=== PATIENT | male | born 1940 | race Caucasian/White ===

== ENCOUNTER → 2016-12-23 | Outpatient (CLI) | payer OTHER, MEDICARE ==
[~2016-12-23] MED LIST: ASPIRIN 81M81 MG/TA2 PO; BENICAR 20MG TA20 MG PO; FLOMAX 0.40.4 MG/CAP PO; GLUCOPHAGE500 MG/TAB PO; LEXAPRO 10MG10 MG PO; LIPITOR20 MG PO; MELATONIN3 MG PO; PROSCAR 5MG5 MG PO; PROTONIX 40MG T40 MG PO; UNKNOWN BP MED; ZOFRAN 4MG T4 MG/TAB PO; [UNRECOGNIZED DRUG - REMARK] PO
== END ==
LOC: COL.RAD 14:45
DX: R51 Headache (principal); C76.0 Malignant neoplasm of head, face and neck
CPT/HCPCS: A9585

== ENCOUNTER → 2017-02-26 | Outpatient (CLI) | payer OTHER | LOC: COL.RAD 11:09 | DX: M19.072 Primary osteoarthritis, left ankle and foot (principal) | CPT/HCPCS: J3301; Q9967 ==

== ENCOUNTER → 2017-03-03 | Outpatient (CLI) | payer OTHER | LOC: COL.RAD 13:22 | DX: M85.672 Other cyst of bone, left ankle and foot (principal) | CPT/HCPCS: J3301 ==

== ENCOUNTER 2017-08-05 10:59 | Day surgery (SDC) | payer OTHER ==
[~2017-08-05] VITALS: Ht 175.3 cm; Wt 61.8 kg
[2017-08-05] MEDS ORDERED: B COMPLEX #11 TAB PO (11:18)
[2017-08-05] MEDS ORDERED: CENTRUM SILVER1 CTB PO (11:19)
[2017-08-05] MEDS ORDERED: THE MEDICINE S200 M2 PO (11:20)
[2017-08-05] MEDS ORDERED: FLAXSEED OIL PO (11:20)
[2017-08-05] MEDS ORDERED: D3 PO (11:21)
[2017-08-05] MEDS ORDERED: NIACIN 64 MG-501 TA1 PO (11:22)
[2017-08-05] MEDS ORDERED: VITAMINC1000TA PO (11:22)
[2017-08-05] MEDS ORDERED: NATURAL E400 IU PO (11:23)
[2017-08-05] MEDS ORDERED: VITAMIN D 1001000 IU PO (11:23)
[2017-08-05] MEDS ORDERED: OSCAL 500 TAB500 MG PO (11:24)
[2017-08-05] MEDS ORDERED: B COMPLEX & B121 TAB PO (11:24)
[2017-08-05] MEDS ORDERED: MASON NATURAL1200 MG PO (11:25)
[2017-08-05 11:39] VITALS: BP 99/64; PULSE 74; TEMP 98.5
[2017-08-05 12:55] VITALS: BP 92/55; PULSE 58; TEMP 98.5
[2017-08-05 13:10] VITALS: BP 112/67; PULSE 56
[2017-08-05 13:13] VITALS: BP 93/56; PULSE 61
== END 2017-08-05 13:40 | disposition home or self-care (01) ==
LOC: SDCO 10:59
DX: K22.70 Barrett's esophagus without dysplasia (principal); K21.0 Gastro-esophageal reflux disease with esophagitis; K20.9 Esophagitis, unspecified; K44.9 Diaphragmatic hernia without obstruction or gangrene; K31.7 Polyp of stomach and duodenum; I10 Essential (primary) hypertension; N40.0 Benign prostatic hyperplasia without lower urinary tract symptoms; G47.33 Obstructive sleep apnea (adult) (pediatric); Z90.49 Acquired absence of other specified parts of digestive tract; Z85.828 Personal history of other malignant neoplasm of skin
CPT/HCPCS: OP; J2704; J7030

== ENCOUNTER → 2018-10-14 | Outpatient (CLI) | payer OTHER ==
[~2018-10-14] MED LIST changes: +B COMPLEX #11 TAB PO; +B COMPLEX & B121 TAB PO; +CENTRUM SILVER1 CTB PO; +D3 PO; +FLAXSEED OIL PO; +MASON NATURAL1200 MG PO; +NATURAL E400 IU PO; +NIACIN 64 MG-501 TA1 PO; +OSCAL 500 TAB500 MG PO; +THE MEDICINE S200 M2 PO; +VITAMIN D 1001000 IU PO; +VITAMINC1000TA PO
== END ==
LOC: COL.VAS 12:30
DX: R20.9 Unspecified disturbances of skin sensation (principal)

== ENCOUNTER 2020-12-21 10:40 | Emergency (ER) | payer OTHER ==
[~2020-12-21] VITALS: Ht 177.8 cm; Wt 67.3 kg
[2020-12-21 10:49] VITALS: TEMP 98.2
[2020-12-21 11:28] VITALS: BP 132/69; PULSE 74
== END 2020-12-21 11:28 | disposition home or self-care (01) ==
LOC: COL.ER 10:40
DX: S61.412A Laceration without foreign body of left hand, initial encounter (principal); Z79.84 Long term (current) use of oral hypoglycemic drugs; W23.0XXA Caught, crushed, jammed, or pinched between moving objects, initial encounter